=== PATIENT | male | born 1965 | race Caucasian/White ===

== ENCOUNTER 2023-09-17 19:21 | Emergency (ER) | payer BC, SELFPAY ==
[2023-09-17 19:25] VITALS: BP 151/88
[2023-09-17] MEDS: ADACEL 0.5 ML IM (21:16)
[2023-09-17 21:24] VITALS: BP 131/86
--- NOTE | 2023-09-17 23:50 | ED.SKININJ ---
HPI-Injury
General
Chief Complaint: Skin Surface Trauma
Source: patient
Exam Limitations: none
Time Seen by Provider: 09/17/23 20:41
Nursing documentation reviewed up to this point in time: agreed with
Travel History
Have you had any contact with someone who has COVID-19?: No
Do you have any symptoms of coronavirus? Fever > 100 degrees, chills, cough, shortness of breath, sore throat, loss of taste or smell, muscle aches, or headache?: No
History of Present Illness-Injury
Is this injury a work related problem?: No
Is pt an associate of [facility]?: No
Initial Injury comments:
Hit head on cabinet door. No LOC Sustained a deep abrasion to right parietal scalp. ON Plavix. COntinues to bleed. Brought to ED by spouse for eval. Injury occurred this AM
Past History
Past History
ED Past Medical History: CAD and NIDDM
ED Past Surgical History: Cardiac (Stent) and Orthopedic (right shoulder pain)
Social History
Tobacco: Non-smoker
Alcohol: None
Drug: None
Living: with family
Employment: Employed
Review of Systems
Review of Systems
Allergies reviewed?: Yes
All Other Systems: ROS reviewed and negative except as documented in HPI and ROS
Constitutional: Reports no symptoms
Musculoskeletal: Reports no symptoms
Skin: Reports other (Deep abrasion right parietal scalp)
Neurological: Reports no symptoms
Psychiatric: Reports no symptoms
Skin Exam
Abrasion
Right Parietal:
Description of abrasion: deep/clean
Phy Exam
General Physical Exam
General Presentation: well appearing and no apparent distress
General age: appears stated age
General Skin: warm and dry
General Habitus: normal
General Mental: alert
Eye Exam
Eye Exam: PERRL, EOMI, conjunctiva normal and globe normal
Musculoskeletal Exam
Musculoskeletal Exam: full ROM and neuro vasc intact
Skin Exam
Skin Exam: normal color and warm/dry
Psychiatric Exam
Psychiatric Exam: normal mood/affect
Course
Orders/Labs/Results
Orders:
Orders
09/17/23 21:11
Tetanus/Diphth/Acelpertussis [Adacel] 0.5 ml IM .ONCE ONE
Vital Signs
Initial and Last Documented VS:
Initial Vital Signs
Temp Pulse Resp BP Pulse Ox
97.1 F 84 18 151/88 98
09/17/23 19:25 09/17/23 19:25 09/17/23 19:25 09/17/23 19:25 09/17/23 19:25
Last Documented Vital Signs
Temp Pulse Resp BP Pulse Ox
97.1 F 83 20 131/86 96
09/17/23 19:25 09/17/23 21:24 09/17/23 21:24 09/17/23 21:24 09/17/23 21:24
Procedures
Laceration Closure
Deep abrasion right parietal scalp:
Status of Wound: clean
Size of Wound in cm: 3
Description of Wound Edges: sharp
Preparation: cleaned with saline
Revision/Debridement: routine- no revision
Wound exploration: explored to base- no FB
Type of Closure: Dermabond-skin glue
*Critical Care Note
Total Time (30-74mins, 75-104mins- exclusive of procedures): Not Applicable
ED Attending Note
-
Portions of this chart may have been created with voice recognition software.� Occasional wrong word or��sound alike� substitutions may have occurred due to the inherent limitations of voice recognition software.
Discharge Plan
Departure
Patient Disposition: Home (Routine Discharge)
Date of Disposition: 09/17/23
Time of Disposition: 21:11
Patient with high blood pressure during this ER visit?: No
Condition: Good
Covid-19: Not Applicable
Discharge Problem:
Laceration of scalp
Instructions: Laceration Repair With Glue (DC)
Prescriptions:
No Action
aspirin 81 MG tablet,delayed release (DR/EC)
81 mg PO DAILY
insulin degludec [Tresiba FlexTouch U-100] 100 UNIT/ML insulin pen
48 unit SQ DAILY
dulaglutide [Trulicity] 0.75 MG/0.5 ML pen injector
1 dose SQ TH
atorvastatin 80 MG tablet
80 mg PO QPM
acetaminophen 325 MG tablet
650 mg PO Q4HPRN PRN (Reason: mild pain,headache,temp >101F ) 0RF
clopidogrel 75 MG tablet
75 mg PO DAILY Qty: 30 2RF
colchicine 0.6 MG tablet
0.3 mg PO BID Qty: 60 2RF
furosemide [Lasix] 20 MG tablet
20 mg PO DAILY Qty: 7 0RF
Rx Instructions:
Take daily for 7 days, then stop
oxycodone 5 MG tablet
5 mg PO Q6HPRN PRN (Reason: pain) Qty: 28 0RF
potassium chloride 10 MEQ tablet,ER particles/crystals
10 meq PO DAILY Qty: 7 0RF
carvedilol 6.25 MG tablet
6.25 mg PO BID Qty: 180 3RF
insulin lispro 100 UNIT/ML insulin pen
5 unit SQ AC Qty: 0 0RF
Patient Comments:
09/01/20-correcting scale plus carb counting
Referrals:
Winsome Foote CRNP [Family Provider] -
Activity Restrictions/Additional Instructions:
Keep wound dry for 24 hours. Do not remove tape strips.
Interventions
Interventions:
*Risk Screen - Suicide Last Done: 09/17/23 19:25
*General Assessment Last Done: 09/17/23 20:59
*Neglect/Abuse Screening Last Done: 09/17/23 19:25
ED- Fall Risk Assessment Last Done: 09/17/23 20:59
*Nursing Disposition Last Done: 09/17/23 21:25
ED-Skin Assessment Last Done: 09/17/23 20:59
Discharge Date and Time
Discharge Date/Time: 09/17/23 21:25
== END 2023-09-17 21:25 | disposition home or self-care (01) ==
LOC: EMR 19:21
PROVIDERS: EMERGENCY PHYSICIAN Emergency Medicine; FAMILY PHYSICIAN Nurse Practitioner Adult Health
DX: S01.01XA Laceration without foreign body of scalp, initial encounter (principal); W22.8XXA Striking against or struck by other objects, initial encounter; Z23 Encounter for immunization; Z79.02 Long term (current) use of antithrombotics/antiplatelets
CPT/HCPCS: 99282; 12002; 90471; 90715

== ENCOUNTER → 2024-12-29 10:49 | Outpatient (REF) | payer BC, SELFPAY | LOC: HWRCS 10:49 | PROVIDERS: ATTENDING PHYSICIAN Internal Medicine Cardiovascular Disease; FAMILY PHYSICIAN Family Medicine | DX: I10 Essential (primary) hypertension (principal); I25.5 Ischemic cardiomyopathy | CPT/HCPCS: 93306 ==